=== PATIENT | female | born 1995 | race Two or more races ===

== ENCOUNTER → 2018-07-23 | Emergency (ER) | payer OTHER ==
[~2018-07-23] VITALS: Ht 152.4 cm; Wt 81.2 kg
[~2018-07-23] MED LIST: SYNTHROID75 MCG; TOPROL XL25 M1 PO
== END | disposition home or self-care (01) ==
LOC: ER 00:01
DX: R00.2 Palpitations (principal); I10 Essential (primary) hypertension

== ENCOUNTER 2019-01-18 06:22 | Emergency (ER) | payer OTHER ==
[~2019-01-18] VITALS: Ht 149.9 cm; Wt 69.4 kg
[2019-01-18] MEDS ORDERED: KETO10TA2 PO (13:08)
== END 2019-01-18 13:14 | disposition home or self-care (01) ==
LOC: ER 06:22
DX: G43.909 Migraine, unspecified, not intractable, without status migrainosus (principal); R51 Headache

== ENCOUNTER 2019-07-07 23:16 | Emergency (ER) | payer OTHER ==
[~2019-07-07] VITALS: Ht 152.4 cm; Wt 75.7 kg
[~2019-07-07 23:16] MED LIST changes: +KETO10TA2 PO
[2019-07-08] MEDS ORDERED: CEFUROXIME500 MG PO (04:11)
[2019-07-08] MEDS ORDERED: ZYNCOF 20-400120 ML PO (04:11)
== END 2019-07-08 04:07 | disposition home or self-care (01) ==
LOC: ER 23:16
DX: R00.2 Palpitations (principal); N39.0 Urinary tract infection, site not specified

== ENCOUNTER 2020-12-28 02:09 | Emergency (ER) | payer OTHER ==
[~2020-12-28] VITALS: Ht 121.9 cm; Wt 78.0 kg
[~2020-12-28 02:09] MED LIST changes: +CEFUROXIME500 MG PO; +ZYNCOF 20-400120 ML PO
[2020-12-28] MEDS ORDERED: INTESTINEX680 M1 PO (05:01)
[2020-12-28] MEDS ORDERED: LEVSIN/SL0.125 MG SL (05:01)
== END 2020-12-28 05:06 | disposition home or self-care (01) ==
LOC: ER 02:09
DX: K52.9 Noninfective gastroenteritis and colitis, unspecified (principal)

== ENCOUNTER 2022-07-29 09:32 | Emergency (ER) | payer OTHER ==
[~2022-07-29] VITALS: Ht 149.9 cm; Wt 78.9 kg
[~2022-07-29 09:32] MED LIST changes: +INTESTINEX680 M1 PO; +LEVSIN/SL0.125 MG SL
== END 2022-07-29 16:20 | disposition home or self-care (01) ==
LOC: ER 09:32
DX: K52.9 Noninfective gastroenteritis and colitis, unspecified (principal); Z88.8 Allergy status to other drugs, medicaments and biological substances

== ENCOUNTER 2023-03-16 08:25 | Outpatient (CLI) | payer OTHER | END 2023-03-16 17:25 | disposition home or self-care (01) | LOC: LAB 08:25 | PROVIDERS: ATTEND Obstetrics & Gynecology | DX: D64.9 Anemia, unspecified (principal); N39.0 Urinary tract infection, site not specified; E78.00 Pure hypercholesterolemia, unspecified; E13.9 Other specified diabetes mellitus without complications; E03.9 Hypothyroidism, unspecified; N91.1 Secondary amenorrhea ==

== ENCOUNTER 2023-09-24 13:47 | Emergency (ER) | payer OTHER ==
[~2023-09-24] VITALS: Ht 149.9 cm; Wt 74.8 kg
[2023-09-24 14:40] LABS: HEMOGLOBIN 13.4 g/dL (12.0-15.00); MEAN CELL VOLUME 79.8 fL (80.00-100.00); MEAN CORPUSCULAR HEMOGLOBIN 26.7 pg (27.00-32.0); MEAN CORPUSCULAR HGB CONC 33.5 g/dl (32.0-36.0); PLATELET COUNT 265 K/uL (150-450); RED BLOOD COUNT 5.01 M/uL (4.00-6.00)
[2023-09-24 15:44] LABS: CALCIUM 9.3 mg/dL (8.5-10.1); CREATININE SERUM 0.83 mg/dL (0.55-1.02); GFR 81.86; POTASSIUM 3.69 mEq/L (3.5-5.1)
== END 2023-09-24 17:13 | disposition home or self-care (01) ==
LOC: ER 13:47
PROVIDERS: General Practice
DX: O20.8 Other hemorrhage in early pregnancy (principal); Z3A.01 Less than 8 weeks gestation of pregnancy

== ENCOUNTER 2023-10-02 10:31 | Outpatient (CLI) | payer OTHER ==
[2023-10-03 11:14] LABS: RH POSITIVE
== END 2023-10-02 10:32 | disposition home or self-care (01) ==
LOC: LAB 10:31
PROVIDERS: ATTEND Obstetrics & Gynecology
DX: N91.1 Secondary amenorrhea (principal)

== ENCOUNTER → 2023-10-04 08:30 | Outpatient (CLI) | payer OTHER | END | disposition home or self-care (01) | LOC: LAB 08:30 | PROVIDERS: ATTEND Obstetrics & Gynecology | DX: N91.1 Secondary amenorrhea (principal) ==

== ENCOUNTER 2023-10-24 08:22 | Outpatient (CLI) | payer OTHER ==
[2023-10-24 07:50] LABS: HEMATOCRIT 38.4 % (36.0-45.00); HEMOGLOBIN 13.1 g/dL (12.0-15.00); MEAN CELL VOLUME 80.6 fL (80.00-100.00); MEAN CORPUSCULAR HEMOGLOBIN 27.6 pg (27.00-32.0); MEAN CORPUSCULAR HGB CONC 34.2 g/dl (32.0-36.0); PLATELET COUNT 253 K/uL (150-450); RED BLOOD COUNT 4.76 M/uL (4.00-6.00); RED CELL DISTRIBUTION WIDTH 15.6 % (11.5-14.5)
[2023-10-24 08:38] LABS: PH,URINE 5.5 (5.0-8.0); URINE APPEARANCE Clear; URINE BILIRRUBIN Negative (NEGATIVE); URINE BLOOD Small; URINE COLOR Yellow; URINE GLUCOSE Negative (NEGATIVE); URINE LEUKOCYTE Trace; URINE NITRATE Negative; URINE PROTEIN Negative (NEGATIVE); URINE UROBILINOGEN 0.2 E.U./dl
[2023-10-24 08:41] LABS: URINE BACTERIA 590.8 uL (0.0-1933); URINE EPITHELIAL CELLS 26.1 uL (0.0-38.8); URINE RBC 7.7 uL (0.0-20.8); URINE WBC 21.7 uL (0.0-23.2)
[2023-10-24 08:59] LABS: ALBUMIN 3.9 gm/dL (3.4-5.0); BILIRUBIN TOTAL 0.38 mg/dL (0.3-1.2); CALCIUM 9.7 mg/dL (8.5-10.1); CREATININE SERUM 0.53 mg/dL (0.55-1.02); GFR 137.36; GLOBULINA 3.6 G/DL (2.4-3.5); POTASSIUM 3.84 mEq/L (3.5-5.1); TOTAL PROTEIN 7.5 gm/dL (6.4-8.2); TSH 2.19 uIU/mL (0.358-3.74)
[2023-10-24 09:56] LABS: RH POSITIVE
[2023-10-24 15:05] LABS: RAPID PLASMA REAGIN NONREACTIVE BY RPR (NONREACTIVE)
[2023-10-26 05:06] LABS: hav igm Negative (Negative); hcv Non Reactive (Non Reactive); hep b c Negative (Negative)
[2023-10-26 09:08] LABS: RUBELLA IGG 4.65 index (Immune >0.99)
[2023-10-26 21:06] LABS: chla t Negative (Negative)
[2023-10-27 17:07] LABS: RUBELLA IGM <20.0 AU/mL (0.0-19.9); neiss Negative (Negative)
== END 2023-10-24 14:27 | disposition home or self-care (01) ==
LOC: LAB 08:22
PROVIDERS: ATTEND Obstetrics & Gynecology
DX: Z34.00 Encounter for supervision of normal first pregnancy, unspecified trimester (principal)

== ENCOUNTER → 2023-11-14 06:22 | Outpatient (CLI) | payer OTHER ==
[2023-11-14 07:23] LABS: PH,URINE 5.5 (5.0-8.0); URINE APPEARANCE Cloudy; URINE BILIRRUBIN Negative (NEGATIVE); URINE COLOR Dark Yellow; URINE GLUCOSE Negative (NEGATIVE); URINE LEUKOCYTE Negative; URINE NITRATE Negative; URINE PROTEIN Trace (NEGATIVE)
[2023-11-14 07:24] LABS: URINE BACTERIA 476.2 uL (0.0-1933); URINE EPITHELIAL CELLS 29.6 uL (0.0-38.8); URINE RBC 9.4 uL (0.0-20.8); URINE WBC 34.7 uL (0.0-23.2)
[2023-11-14 07:54] LABS: GLUCOSE FASTING 104 mg/dL (65-100)
[2023-11-14 08:02] LABS: URINE BLOOD TRACE
== END | disposition home or self-care (01) ==
LOC: LAB 06:22
PROVIDERS: ATTEND Obstetrics & Gynecology
DX: O24.419 Gestational diabetes mellitus in pregnancy, unspecified control (principal)

== ENCOUNTER 2023-11-16 08:04 | Outpatient (CLI) | payer OTHER | END 2023-11-16 08:10 | disposition home or self-care (01) | LOC: PRENATAL 08:04 | PROVIDERS: ATTEND Obstetrics & Gynecology Maternal & Fetal Medicine | DX: O36.80X0 Pregnancy with inconclusive fetal viability, not applicable or unspecified (principal); Z36.82 Encounter for antenatal screening for nuchal translucency; O24.419 Gestational diabetes mellitus in pregnancy, unspecified control; O10.019 Pre-existing essential hypertension complicating pregnancy, unspecified trimester; O99.280 Endocrine, nutritional and metabolic diseases complicating pregnancy, unspecified trimester; Z36.9 Encounter for antenatal screening, unspecified; O99.210 Obesity complicating pregnancy, unspecified trimester; Z3A.12 12 weeks gestation of pregnancy ==

== ENCOUNTER 2024-03-07 10:29 | Outpatient (CLI) | payer OTHER ==
[~2024-03-07 10:29] MED LIST changes: +CHILDREN'S ASPI81 MG PO; +HUMULIN N100 UNIT/2 SUBCUTANEO; +HUMULIN R100 UNIT/1 SUBCUTANEO; +INSULIN SYRING1 EA29 SUBCUTANEO; +LABETALOL HCL100 MG PO; +LEVO-T50 MCG PO; +PRENA1 CHEW TA1.4 MG PO
== END 2024-03-07 10:30 | disposition home or self-care (01) ==
LOC: PRENATAL 10:29
PROVIDERS: ATTEND Obstetrics & Gynecology Maternal & Fetal Medicine
DX: O26.843 Uterine size-date discrepancy, third trimester (principal); O16.3 Unspecified maternal hypertension, third trimester; O99.283 Endocrine, nutritional and metabolic diseases complicating pregnancy, third trimester; O99.213 Obesity complicating pregnancy, third trimester; O24.419 Gestational diabetes mellitus in pregnancy, unspecified control; Z3A.28 28 weeks gestation of pregnancy

== ENCOUNTER 2024-03-16 12:06 | Outpatient (CLI) | payer OTHER ==
[2024-03-16 13:02] LABS: URINE PROT QUANT 24HR 9.2 MG/DL
[2024-03-16 13:03] LABS: URINE PROT QUANT 24 HR 158.7 MG/24HR (42-225)
[2024-03-19] MEDS ORDERED: LABETALOL HCL200 MG PO (13:28)
== END 2024-03-16 15:12 | disposition home or self-care (01) ==
LOC: LAB 12:06
PROVIDERS: ATTEND Obstetrics & Gynecology
DX: O13.9 Gestational [pregnancy-induced] hypertension without significant proteinuria, unspecified trimester (principal)

== ENCOUNTER 2024-04-03 11:53 | Outpatient (CLI) | payer OTHER ==
[~2024-04-03 11:53] MED LIST changes: +LABETALOL HCL200 MG PO
== END 2024-04-03 11:54 | disposition home or self-care (01) ==
LOC: PRENATAL 11:53
PROVIDERS: ATTEND Obstetrics & Gynecology Maternal & Fetal Medicine
DX: O26.849 Uterine size-date discrepancy, unspecified trimester (principal); O36.8199 Decreased fetal movements, unspecified trimester, other fetus; O24.419 Gestational diabetes mellitus in pregnancy, unspecified control; O10.019 Pre-existing essential hypertension complicating pregnancy, unspecified trimester; O99.280 Endocrine, nutritional and metabolic diseases complicating pregnancy, unspecified trimester; O99.210 Obesity complicating pregnancy, unspecified trimester; Z3A.32 32 weeks gestation of pregnancy

== ENCOUNTER → 2024-05-01 09:39 | Outpatient (CLI) | payer OTHER | END | disposition home or self-care (01) | LOC: PRENATAL 09:39 | PROVIDERS: ATTEND Obstetrics & Gynecology Maternal & Fetal Medicine | DX: O26.849 Uterine size-date discrepancy, unspecified trimester (principal); O36.8199 Decreased fetal movements, unspecified trimester, other fetus; O24.419 Gestational diabetes mellitus in pregnancy, unspecified control; O10.019 Pre-existing essential hypertension complicating pregnancy, unspecified trimester; O99.280 Endocrine, nutritional and metabolic diseases complicating pregnancy, unspecified trimester; O99.210 Obesity complicating pregnancy, unspecified trimester; Z3A.36 36 weeks gestation of pregnancy ==

== ENCOUNTER 2024-05-09 01:18 | Outpatient (CLI) | payer OTHER ==
[2024-05-09 00:32] VITALS: BP 109/77
[2024-05-09] MEDS ORDERED: RINGERS SOLUTION,LACTATED 1,000 ML IV SCH (01:30)
[2024-05-09] MEDS ORDERED: LABETALOL HCL200 MG PO (01:55)
[2024-05-09] MEDS ORDERED: LEVOTHYROXINE50 MC1 PO (01:56)
[2024-05-09 03:35] VITALS: BP 109/70
[2024-05-09 06:04] VITALS: BP 125/81; O2SAT 98
[2024-05-09 08:40] VITALS: BP 125/81
== END 2024-05-09 10:32 | disposition home or self-care (01) ==
LOC: OBS/DEL 01:18
PROVIDERS: ATTEND Obstetrics & Gynecology
DX: O24.419 Gestational diabetes mellitus in pregnancy, unspecified control (principal); O13.3 Gestational [pregnancy-induced] hypertension without significant proteinuria, third trimester; Z3A.37 37 weeks gestation of pregnancy

== ENCOUNTER 2024-05-21 07:18 | Inpatient (IN) | payer OTHER ==
[~2024-05-21] VITALS: Ht 149.9 cm; Wt 83.9 kg
[~2024-05-21 07:18] MED LIST changes: +LEVOTHYROXINE50 MC1 PO
[2024-05-21 08:32] VITALS: BP 124/83
[2024-05-21] MEDS ORDERED: MISOPROSTOL 25 MCG/4 ML GEL.W.APPL VAG ONE (08:45)
[2024-05-21] MEDS ORDERED: MORPHINE SULFATE 4 MG/ML CARTRIDGE IV ONE (09:15)
[2024-05-21] MEDS ORDERED: OXYTOCIN 500 ML IV SCH (09:15)
[2024-05-21] MEDS ORDERED: PRENATAL TABLE1 EAC4 PO (09:20)
[2024-05-21 09:27] LABS: HEMATOCRIT 36.7 % (36.0-45.00); HEMOGLOBIN 12.7 g/dL (12.0-15.00); MEAN CELL VOLUME 84.5 fL (80.00-100.00); MEAN CORPUSCULAR HEMOGLOBIN 29.2 pg (27.00-32.0); MEAN CORPUSCULAR HGB CONC 34.5 g/dl (32.0-36.0); PLATELET COUNT 199 K/uL (150-450); RED BLOOD COUNT 4.35 M/uL (4.00-6.00); RED CELL DISTRIBUTION WIDTH 15.7 % (11.5-14.5)
[2024-05-21 09:36] LABS: PH,URINE 6.5 (5.0-8.0); URINE APPEARANCE Clear; URINE BILIRRUBIN Negative (NEGATIVE); URINE BLOOD Negative; URINE COLOR Yellow; URINE GLUCOSE Negative (NEGATIVE); URINE KETONE Negative (NEGATIVE); URINE LEUKOCYTE Negative; URINE NITRATE Negative; URINE PROTEIN Negative (NEGATIVE); URINE UROBILINOGEN 0.2 E.U./dl
[2024-05-21 09:38] LABS: URINE BACTERIA 18.8 uL (0.0-1933); URINE WBC 5.3 uL (0.0-23.2)
[2024-05-21 09:47] LABS: URINE RBC 1.2 uL (0.0-20.8)
[2024-05-21 09:48] LABS: INR 0.94; PARTIAL THROMBOPLASTIN TIME 26.3 SECONDS (22.0-34.0); PROTHROMBIN TIME 10.3 SECONDS (9.0-11.5)
[2024-05-21] MEDS ORDERED: RINGERS SOLUTION,LACTATED 1,000 ML IV SCH (10:00)
[2024-05-21 10:33] LABS: ALBUMIN 3.3 gm/dL (3.4-5.0); BILIRUBIN TOTAL 0.35 mg/dL (0.3-1.2); CALCIUM 10.4 mg/dL (8.5-10.1); CREATININE SERUM 0.39 mg/dL (0.55-1.02); GFR 195.69; GLOBULINA 3.7 G/DL (2.4-3.5); POTASSIUM 4.53 mEq/L (3.5-5.1)
[2024-05-21 12:00] VITALS: BP 160/100
[2024-05-21] MEDS ORDERED: PROMETHAZINE HCL 50 MG/ML AMPUL IM PRN (15:00)
[2024-05-21] MEDS ORDERED: MEPERIDINE HCL/PF 50 MG/ML VIAL IM PRN (15:00)
[2024-05-21] MEDS ORDERED: CHLORHEXIDINE GLUCONATE 120 ML BOTTLE TOP ONE (15:30)
[2024-05-21] MEDS ORDERED: CEFAZOLIN SODIUM 1,000 MG VIAL IV SCH (15:30)
[2024-05-21] MEDS ORDERED: OXYTOCIN 10 UNITS/ML VIAL IV ONE (15:30)
[2024-05-21] MEDS ORDERED: ERYTHROMYCIN BASE OPHT 1GM EACH TUBE OP ONE (15:30)
[2024-05-21] MEDS ORDERED: MORPHINE SULFATE 4 MG/ML VIAL IV ONE ×2 (16:25→16:55)
[2024-05-21] MEDS ORDERED: MEPERIDINE HCL 50 MG/ML AMPUL IM ONE (17:25)
[2024-05-21] MEDS ORDERED: PROMETHAZINE HCL 50 MG/ML AMPUL IV ONE (17:25)
[2024-05-21] MEDS ORDERED: PROMETHAZINE HCL 50 MG/ML AMPUL IM ONE (17:25)
[2024-05-21 18:54] VITALS: BP 147/90
[2024-05-21 23:09] LABS: HEMOGLOBIN 12.9 g/dL (12.0-15.00); MEAN CELL VOLUME 85.4 fL (80.00-100.00); MEAN CORPUSCULAR HEMOGLOBIN 28.9 pg (27.00-32.0); MEAN CORPUSCULAR HGB CONC 33.8 g/dl (32.0-36.0); PLATELET COUNT 187 K/uL (150-450); RED BLOOD COUNT 4.45 M/uL (4.00-6.00); RED CELL DISTRIBUTION WIDTH 15.3 % (11.5-14.5)
[2024-05-22 00:44] VITALS: BP 112/74
[2024-05-22] MEDS ORDERED: OxyCODONE HCL/APAP UD (PERCOCET) PO PRN (08:00)
[2024-05-22 08:43] VITALS: BP 137/93
[2024-05-22] MEDS ORDERED: PNV,CALCIUM 72/IRON/FOLIC ACID 1 TAB TABLET PO SCH (09:00)
[2024-05-22] MEDS ORDERED: DOCUSATE SODIUM 100MG CAP PO SCH (09:00)
[2024-05-22] MEDS ORDERED: SIMETHICONE 125 MG CAPSULE PO SCH (09:00)
[2024-05-22 16:16] VITALS: BP 119/78
[2024-05-23 02:03] VITALS: BP 135/85
[2024-05-23 08:00] VITALS: BP 139/81
[2024-05-23 16:00] VITALS: BP 138/80
[2024-05-24 01:30] VITALS: BP 136/85
[2024-05-24 08:44] VITALS: BP 120/80
== END 2024-05-24 13:34 | disposition home or self-care (01) | DRG 788 ==
LOC: LDR 07:18 → OB/GYN 07:18 → O/R 15:11 → OB/GYN 15:13
PROVIDERS: ADMIT Obstetrics & Gynecology; ATTEND Obstetrics & Gynecology
PROC: 4A1HXCZ Monitoring of Products of Conception, Cardiac Rate, External Approach (ICD-10-PCS; 2024-05-21)
PROC: 3E033VJ Introduction of Other Hormone into Peripheral Vein, Percutaneous Approach (ICD-10-PCS; 2024-05-21)
PROC: 3E0P7VZ Introduction of Hormone into Female Reproductive, Via Natural or Artificial Opening (ICD-10-PCS; 2024-05-21)
PROC: 10D00Z1 Extraction of Products of Conception, Low, Open Approach (ICD-10-PCS; principal; 2024-05-21 13:30)
DX: O36.8130 Decreased fetal movements, third trimester, not applicable or unspecified (principal); O24.420 Gestational diabetes mellitus in childbirth, diet controlled; Z3A.38 38 weeks gestation of pregnancy; Z37.0 Single live birth; Z20.822 Contact with and (suspected) exposure to COVID-19

== ENCOUNTER 2024-09-30 11:38 | Outpatient (CLI) | payer OTHER ==
[~2024-09-30 11:38] MED LIST changes: +PRENATAL TABLE1 EAC4 PO
== END 2024-09-30 11:40 | disposition home or self-care (01) ==
LOC: SONOGRAMA 11:38
PROVIDERS: ATTEND Internal Medicine
DX: E04.2 Nontoxic multinodular goiter (principal)